=== PATIENT | male | born 1990 | race Caucasian/White ===

== ENCOUNTER 2022-10-17 07:13 | Emergency (ER) | payer OTHER | END 2022-10-17 07:44 | disposition home or self-care (01) | LOC: BURERS 07:13 | DX: S50.862A Insect bite (nonvenomous) of left forearm, initial encounter (principal); F17.220 Nicotine dependence, chewing tobacco, uncomplicated; W57.XXXA Bitten or stung by nonvenomous insect and other nonvenomous arthropods, initial encounter | CPT/HCPCS: 99282 ==

== ENCOUNTER 2024-12-08 08:53 | Emergency (ER) | payer OTHER ==
[2024-12-08 09:16] LABS: Hematocrit 45.7 % (42.0-52.0); Hemoglobin 15.9 g/dL (14.0-18.0); MDiff Complete? YES; Mean Corpuscular Hemoglobin 28.6 pg (27.0-31.0); Mean Corpuscular Volume 82.2 fl (78.0-98.0); Platelet Count 273 10x3/uL (130-400); Red Blood Cell (RBC) Count 5.56 mill/uL (4.70-6.10); White Blood Cell (WBC) Count 10.3 10x3/uL (4.8-10.8)
[2024-12-08 09:29] LABS: ALT (SGPT) 46 U/L (Less than 45); AST (SGOT) 38 U/L (11-34); Albumin 4.3 g/dL (3.1-4.5); Alkaline Phosphatase 54 U/L (40-110); Anion Gap 16 mmol/L (10-20); BUN (Urea Nitrogen) 15 mg/dL (8.9-20.6); Bilirubin, Total 0.6 mg/dL (0.3-1.2); CK (CPK) 108 U/L (30-200); Calc. Creatinine Clearance 0 mL/min (70-130); Calcium 9.4 mg/dL (7.8-10.44); Carbon Dioxide 24 mmol/L (22-29); Chloride 106 mmol/L (98-107); Globulin 3.7 g/dL (2.4-3.5); Glucose 91 mg/dL (70-105); Magnesium 2.0 mg/dL (1.6-2.6); Potassium 3.9 mmol/L (3.5-5.1); Sodium 142 mmol/L (136-145); Troponin I Less than 0.010 ng/mL (< 0.028)
[2024-12-08] MEDS ORDERED: diphenhydrAMINE 50 MG/ML VIAL ONE (09:32)
[2024-12-08] MEDS ORDERED: Ketorolac Tromethamine 30 MG (1 mL) VIAL ONE (09:32)
[2024-12-08] MEDS ORDERED: Famotidine/PF 20 mg/2ml Vial ONE (09:32)
[2024-12-08 09:58] LABS: Cocaine Metabolite Screen Negative (Negative); THC/Cannabinoid Screen Negative (Negative); Tricyclic Screen Negative (Negative)
== END 2024-12-08 11:26 | disposition home or self-care (01) ==
LOC: BURERS 08:53
DX: S29.011A Strain of muscle and tendon of front wall of thorax, initial encounter (principal); T78.40XA Allergy, unspecified, initial encounter; J98.01 Acute bronchospasm; F17.220 Nicotine dependence, chewing tobacco, uncomplicated; X58.XXXA Exposure to other specified factors, initial encounter
CPT/HCPCS: 71045; 80053; 80306; 82550; 83735; 83880; 84484; 85025; 85379; 93005; 96365; 96375; J1200; J1885; J2919